=== PATIENT | female | born 2005 | race Caucasian/White ===

== ENCOUNTER 2025-07-20 10:38 | Outpatient (CLI) | payer MEDICAID | END 2025-07-20 10:39 | disposition home or self-care (01) | LOC: CSHULT 10:38 | PROVIDERS: ATTEND Nurse Practitioner | DX: O09.30 Supervision of pregnancy with insufficient antenatal care, unspecified trimester (principal); Z3A.19 19 weeks gestation of pregnancy | CPT/HCPCS: 76805 ==